=== PATIENT | female | born 1995 | race Caucasian/White ===

== ENCOUNTER 2017-10-02 04:11 | Inpatient (IN) | payer OTHER ==
[~2017-10-02] VITALS: Ht 167.6 cm; Wt 74.9 kg
[2017-10-02 04:45] LABS: BASOPHILS # (AUTO) 0.02 x10^3/uL (0-0.1); BASOPHILS % (AUTO) 0 % (0-1); EOSINOPHILS # (AUTO) 0.19 x10^3/uL (0-0.4); EOSINOPHILS % (AUTO) 2 % (1-7); LYMPHOCYTES # (AUTO) 3.01 x10^3/uL (1-3.4); LYMPHOCYTES % (AUTO) 26 % (22-44); MD NO; MEAN CORPUSCULAR HEMOGLOBIN 31.2 pg (27.0-34.8); MEAN CORPUSCULAR HGB CONC 34.4 g/dL (32.4-35.8); MEAN CORPUSCULAR VOLUME 90.8 fL (80-100); MEAN PLATELET VOLUME 7.2 fL (7.4-10.4); MONOCYTES # (AUTO) 0.36 x10^3/uL (0.2-0.8); MONOCYTES % (AUTO) 3 % (2-9); NEUTROPHILS # (AUTO) 8.02 x10^3/uL (1.8-6.8); NEUTROPHILS % (AUTO) 69 % (42-75); PLATELET COUNT 378 x10^3/uL (130-400); RED BLOOD COUNT 4.28 x10^6/uL (3.82-5.3); RED CELL DISTRIBUTION WIDTH 12.9 % (9.6-15.2)
[2017-10-02 04:52] LABS: ALBUMIN 3.8 g/dL (3.4-5.0); ANION GAP 13 mmol/L (5-15); CALCIUM 8.9 mg/dL (8.5-10.1); CHLORIDE 110 mmol/L (98-107); SALICYLATE LEVEL 2.3 mg/dL (2.8-20.0)
[2017-10-02 05:00] LABS: ALANINE AMINOTRANSFERASE 18 U/L (12-78); ALKALINE PHOSPHATASE 61 U/L (45-117); BILIRUBIN,TOTAL 0.2 mg/dL (0.2-1.0); CREATININE 0.89 mg/dL (0.55-1.02); FREE T4 (FREE THYROXINE) 0.89 ng/dL (0.76-1.46); TOTAL PROTEIN 7.6 g/dL (6.4-8.2)
[2017-10-02 05:09] LABS: ACETAMINOPHEN < 2 mcg/mL (10-30)
[2017-10-02] MEDS ORDERED: SODIUM CHLORIDE 0.9% 1,000ML IVBOLUS ONE (05:30)
[2017-10-02 05:49] LABS: BARBITURATE SCREEN, URINE Negative (Negative); BENZODIAZEPINE SCREEN, URINE Negative (Negative); CANNABINOID SCREEN, URINE Positive (Negative); COCAINE SCREEN, URINE Negative (Negative); METHADONE SCREEN, URINE Negative (Negative); OPIATE SCREEN, URINE Negative (Negative)
[2017-10-02 05:51] LABS: AMPHETAMINE SCREEN, URINE Negative (Negative)
[2017-10-02] MEDS ORDERED: LITH150C PO (06:25)
[2017-10-02] MEDS ORDERED: TRAZ50TA18 PO (06:25)
[2017-10-02] MEDS ORDERED: NS + 20MEQ KCL 1,000 ML IV SCH (07:08)
[2017-10-02] MEDS ORDERED: BISACODYL 10 MG SUPP PR PRN (07:30)
[2017-10-02] MEDS ORDERED: ACETAMINOPHEN 325 MG TABLET PO PRN (07:30)
[2017-10-02] MEDS ORDERED: hydrALAzine 20 MG/ML, 1ML IVPush PRN (07:30)
[2017-10-02] MEDS ORDERED: DOCUSATE 100 MG CAPSULE PO PRN (07:30)
[2017-10-02] MEDS ORDERED: ONDANSETRON 2MG/ML, 2ML IVPush PRN (07:30)
[2017-10-02] MEDS ORDERED: POLYETHYLENE GLYCOL 17 GM PACKET PO PRN (07:30)
[2017-10-02] MEDS ORDERED: LORazepam 1MG TABLET PO PRN (07:30)
[2017-10-02 10:48] VITALS: BP 104/63
[2017-10-02] MEDS: D5%-0.45NACL+KCL 20MEQ 1,000 ML IV SCH ×2 (11:27→21:03)
[2017-10-02] MEDS: ENOXAPARIN 40 MG/0.4 ML SQ SCH (14:06)
[2017-10-02 15:58] VITALS: BP 105/65
[2017-10-02 19:36] VITALS: BP 108/57
[2017-10-03 01:53] VITALS: BP 115/55
[2017-10-03 04:57] LABS: BASOPHILS # (AUTO) 0.02 x10^3/uL (0-0.1); BASOPHILS % (AUTO) 0 % (0-1); EOSINOPHILS # (AUTO) 0.29 x10^3/uL (0-0.4); EOSINOPHILS % (AUTO) 4 % (1-7); LYMPHOCYTES # (AUTO) 3.29 x10^3/uL (1-3.4); LYMPHOCYTES % (AUTO) 45 % (22-44); MD NO; MEAN CORPUSCULAR HEMOGLOBIN 30.7 pg (27.0-34.8); MEAN CORPUSCULAR HGB CONC 33.5 g/dL (32.4-35.8); MEAN CORPUSCULAR VOLUME 91.7 fL (80-100); MEAN PLATELET VOLUME 7.4 fL (7.4-10.4); MONOCYTES # (AUTO) 0.92 x10^3/uL (0.2-0.8); MONOCYTES % (AUTO) 13 % (2-9); NEUTROPHILS # (AUTO) 2.79 x10^3/uL (1.8-6.8); NEUTROPHILS % (AUTO) 38 % (42-75); PLATELET COUNT 330 x10^3/uL (130-400); RED BLOOD COUNT 3.82 x10^6/uL (3.82-5.3); RED CELL DISTRIBUTION WIDTH 13.6 % (9.6-15.2)
[2017-10-03 05:00] LABS: ANION GAP 9 mmol/L (5-15); CALCIUM 8.5 mg/dL (8.5-10.1); CHLORIDE 111 mmol/L (98-107)
[2017-10-03 07:27] VITALS: BP 90/55
[2017-10-03 12:03] VITALS: BP 113/76
[2017-10-03] MEDS ORDERED: MAGNESIUM SULFATE PMX 2GM/50ML 50 ML IV ONE (12:30)
[2017-10-03] MEDS ORDERED: POTASSIUM CHLORIDE 20 MEQ TAB.ER.PRT PO ONE (12:30)
[2017-10-03] MEDS: MAGNESIUM OXIDE 400 MG TABLET PO SCH ×2 (14:19→21:05)
[2017-10-03] MEDS: ENOXAPARIN 40 MG/0.4 ML SQ SCH (14:19)
[2017-10-03 19:22] VITALS: BP 120/78
[2017-10-04] MEDS: LORazepam 1MG TABLET PO PRN ×2 (00:04→11:33)
[2017-10-04 00:59] VITALS: BP 121/74
[2017-10-04 05:42] LABS: ANION GAP 6 mmol/L (5-15); CALCIUM 9.1 mg/dL (8.5-10.1); CHLORIDE 108 mmol/L (98-107); CREATININE 0.76 mg/dL (0.55-1.02)
[2017-10-04 08:29] VITALS: BP 103/68
[2017-10-04 14:08] VITALS: BP 119/75
[2017-10-04] MEDS: ENOXAPARIN 40 MG/0.4 ML SQ SCH (14:26)
[2017-10-04] MEDS ORDERED: LORazepam 1MG TABLET PO PRN (16:00)
[2017-10-04 18:43] VITALS: BP 110/70
[2017-10-04] MEDS: OLANZAPINE 5 MG TABLET PO SCH (21:37)
[2017-10-05 02:46] VITALS: BP 112/72
[2017-10-05] MEDS: LORazepam 0.5MG TABLET PO PRN ×3 (03:10→17:27)
[2017-10-05 07:53] VITALS: BP 105/65
[2017-10-05] MEDS: ENOXAPARIN 40 MG/0.4 ML SQ SCH (14:00)
[2017-10-05 14:51] VITALS: BP 110/63
[2017-10-05 19:01] VITALS: BP 112/73
[2017-10-05 20:29] VITALS: BP 114/75
[2017-10-05] MEDS: OLANZAPINE 5 MG TABLET PO SCH (20:30)
[2017-10-05] MEDS ORDERED: OLAN5TAB9 PO (21:07)
== END 2017-10-05 21:29 | DRG 918 ==
LOC: ED 06:24 → EDIP 06:44 → 5SO 07:26
PROVIDERS: ADMIT Internal Medicine; ATTEND Internal Medicine
DX: T43.211A Poisoning by selective serotonin and norepinephrine reuptake inhibitors, accidental (unintentional), initial encounter (principal); E87.2 Acidosis; F31.9 Bipolar disorder, unspecified; I45.81 Long QT syndrome; D72.829 Elevated white blood cell count, unspecified; Y92.89 Other specified places as the place of occurrence of the external cause; I95.9 Hypotension, unspecified
CPT/HCPCS: 0399T; 36415; 80048; 80053; 80178; 80307; 80329; 83735; 84439; 84443; 84703; 85025; 93005; 93306; 99285; J1650; G0480; J3480; J7030